=== PATIENT | male | born 1995 | race Caucasian/White ===

== ENCOUNTER → 2016-06-21 | Emergency (ER) | payer BC, OTHER ==
[~2016-06-21] VITALS: Ht 177.8 cm; Wt 83.9 kg
[~2016-06-21] MED LIST: ACET-71 PO; CLIN1CAP5 PO; ZITH250T PO
[2016-06-21 22:13] VITALS: BP 148/72
== END | disposition home or self-care (01) ==
LOC: M ED 22:09
DX: Z04.1 Encounter for examination and observation following transport accident (principal); Z53.21 Procedure and treatment not carried out due to patient leaving prior to being seen by health care provider

== ENCOUNTER 2017-04-23 12:49 | Emergency (ER) | payer BC, OTHER ==
[2017-04-23] MEDS: PERCOCET 5MG/325MG TAB PO ×2 (13:20)
[2017-04-23] MEDS: ADACEL/BOOSTRIX VACCINE (DIPHTH/PERTUSS/ACELL/TETANUS)0.5ML SYR (90715) IM ×2 (13:58)
== END 2017-04-23 14:50 | disposition home or self-care (01) ==
LOC: M ED 12:49
DX: T33.531A Superficial frostbite of right finger(s), initial encounter (principal); X31.XXXA Exposure to excessive natural cold, initial encounter; Y92.89 Other specified places as the place of occurrence of the external cause; Y93.89 Activity, other specified; Y99.8 Other external cause status
CPT/HCPCS: 90715

== ENCOUNTER 2017-04-24 13:37 | Emergency (ER) | payer BC, OTHER | END 2017-04-24 14:37 | disposition home or self-care (01) | LOC: M ED 13:37 | DX: Z04.8 Encounter for examination and observation for other specified reasons (principal); T33.531D Superficial frostbite of right finger(s), subsequent encounter; X31.XXXD Exposure to excessive natural cold, subsequent encounter; Y92.89 Other specified places as the place of occurrence of the external cause; Y93.89 Activity, other specified; Y99.8 Other external cause status | CPT/HCPCS: 99282 ==

== ENCOUNTER → 2017-04-28 | Outpatient (REF) | payer OTHER ==
[2017-04-28 16:08] LABS: BASO % 0.5 % (0.0-1.0); EOS # 0.1 10^3/uL (0.0-0.50); EOS % 1.4 % (0.0-3.0); HEMATOCRIT 43.9 % (42.0-52.0); HEMOGLOBIN 15.6 g/dl (14.0-18.0); IMMATURE GRANULOCYTE # 0.1 10^3/uL (0-0); IMMATURE GRANULOCYTE % 1.1 % (0-0); LYMPH # 1.7 10^3/uL (1.5-6.5); LYMPH % 25.8 % (24.0-44.0); MEAN CORPUSCULAR HEMOGLOBIN 31.8 pg (27.0-33.0); MEAN CORPUSCULAR HGB CONC 35.5 g/dl (32.0-36.5); MEAN CORPUSCULAR VOLUME 89.4 fl (80.0-96.0); MONO # 0.5 10^3/uL (0.0-0.8); MONO % 7.5 % (0.0-5.0); NEUTROPHILS # 4.1 10^3/uL (1.8-7.7); NEUTROPHILS % 63.7 % (36.0-66.0); PLATELET COUNT, AUTOMATED 212 10^3/uL (150-450); RED BLOOD COUNT 4.91 10^6/uL (4.30-6.10); RED CELL DISTRIBUTION WIDTH 11.8 % (11.5-14.5); WHITE BLOOD COUNT 6.4 10^3/uL (4.0-10.0)
[2017-04-28 18:37] LABS: ALBUMIN 3.9 GM/DL (3.2-5.2); ALBUMIN/GLOBULIN RATIO 1.22 (1.00-1.93); ALKALINE PHOSPHATASE 73 U/L (45-117); ALT/SGPT 33 U/L (12-78); ANION GAP 8 MEQ/L (8-16); AST/SGOT 23 U/L (7-37); BILIRUBIN,TOTAL 0.3 MG/DL (0.2-1.0); BLOOD UREA NITROGEN 15 MG/DL (7-18); CALCIUM LEVEL 8.6 MG/DL (8.5-10.1); CARBON DIOXIDE LEVEL 30 MEQ/L (21-32); CHLORIDE LEVEL 103 MEQ/L (98-107); CHOLESTEROL LEVEL 194 MG/DL (<200); CREATININE FOR GFR 0.97 MG/DL (0.70-1.30); GLOMERULAR FILTRATION RATE > 60.0 (>60); GLUCOSE, FASTING 68 MG/DL (70-105); HDL CHOLESTEROL 52 MG/DL (>40); LDL CHOLESTEROL 119.8 MG/DL (<100); NON-HDL-C 142 MG/DL; POTASSIUM SERUM 4.1 MEQ/L (3.5-5.1); SODIUM LEVEL 141 MEQ/L (136-145); TOTAL PROTEIN 7.1 GM/DL (6.4-8.2); TRIGLYCERIDES LEVEL 111 MG/DL (<150)
== END ==
LOC: M SFHCPLAZ 14:46
DX: R00.2 Palpitations (principal); Z00.00 Encounter for general adult medical examination without abnormal findings; Z13.220 Encounter for screening for lipoid disorders; R07.9 Chest pain, unspecified; T33.521A Superficial frostbite of right hand, initial encounter

== ENCOUNTER → 2017-06-06 | Outpatient (CLI) | payer BC, OTHER ==
[~2017-06-06] MED LIST changes: -ACET-71 PO; -CLIN1CAP5 PO; +GASTROGRAFIN SOLUTION 30ML (Q9963) As Ordered; +ISOVUE-370 76% 100ML VIAL (Q9967) As Ordered; -ZITH250T PO
== END ==
LOC: M RAD 09:21
DX: R10.84 Generalized abdominal pain (principal); R11.10 Vomiting, unspecified; R63.5 Abnormal weight gain

== ENCOUNTER → 2017-06-06 | Outpatient (CLI) | payer OTHER ==
[2017-06-06 08:47] LABS: BASO % 0.2 % (0.0-1.0); EOS # 0.1 10^3/uL (0.0-0.50); HEMATOCRIT 40.4 % (42.0-52.0); HEMOGLOBIN 14.4 g/dl (14.0-18.0); IMMATURE GRANULOCYTE % 0.4 % (0-3.0); LYMPH # 1.4 10^3/uL (1.5-6.5); LYMPH % 31.1 % (24.0-44.0); MEAN CORPUSCULAR HEMOGLOBIN 32.5 pg (27.0-33.0); MEAN CORPUSCULAR HGB CONC 35.6 g/dl (32.0-36.5); MEAN CORPUSCULAR VOLUME 91.2 fl (80.0-96.0); MONO # 0.6 10^3/uL (0.0-0.8); MONO % 13.9 % (0.0-5.0); NEUTROPHILS # 2.4 10^3/uL (1.8-7.7); NEUTROPHILS % 52.4 % (36.0-66.0); PLATELET COUNT, AUTOMATED 167 10^3/uL (150-450); RED BLOOD COUNT 4.43 10^6/uL (4.30-6.10); RED CELL DISTRIBUTION WIDTH 11.7 % (11.5-14.5); WHITE BLOOD COUNT 4.6 10^3/uL (4.0-10.0)
[2017-06-06 09:19] LABS: ALBUMIN 3.6 GM/DL (3.2-5.2); ALBUMIN/GLOBULIN RATIO 1.29 (1.00-1.93); ALKALINE PHOSPHATASE 79 U/L (45-117); ALT/SGPT 49 U/L (12-78); ANION GAP 5 MEQ/L (8-16); AST/SGOT 45 U/L (7-37); BILIRUBIN,TOTAL 0.3 MG/DL (0.2-1.0); BLOOD UREA NITROGEN 13 MG/DL (7-18); CALCIUM LEVEL 7.8 MG/DL (8.5-10.1); CARBON DIOXIDE LEVEL 32 MEQ/L (21-32); CHLORIDE LEVEL 107 MEQ/L (98-107); CREATININE FOR GFR 1.06 MG/DL (0.70-1.30); GLOMERULAR FILTRATION RATE > 60.0 (>60); GLUCOSE, FASTING 79 MG/DL (70-100); LIPASE 110 U/L (73-393); POTASSIUM SERUM 3.9 MEQ/L (3.5-5.1); SODIUM LEVEL 144 MEQ/L (136-145); TOTAL PROTEIN 6.4 GM/DL (6.4-8.2)
== END ==
LOC: M WUC 08:15
DX: R10.84 Generalized abdominal pain (principal)

== ENCOUNTER 2017-08-05 10:26 | Day surgery (SDC) | payer BC, OTHER ==
[2017-08-05] MEDS: NS 1,000 ML IV (11:03)
[2017-08-05] MEDS ORDERED: fentaNYL 100 MCG/2 ML INJECTION (J3010) As Ordered (12:05)
[2017-08-05] MEDS ORDERED: LIDOCAINE 2% INJ 100 MG/5 ML SDV (FOR ANES.) As Ordered (12:07)
[2017-08-05] MEDS ORDERED: PROPOFOL 200 MG/20 ML VIAL As Ordered ×3 (12:19→12:33)
== END 2017-08-05 13:10 | disposition home or self-care (01) ==
LOC: M OPP 10:26
DX: K52.9 Noninfective gastroenteritis and colitis, unspecified (principal); K63.5 Polyp of colon; K64.8 Other hemorrhoids; R93.3 Abnormal findings on diagnostic imaging of other parts of digestive tract; K29.70 Gastritis, unspecified, without bleeding; K31.89 Other diseases of stomach and duodenum; R11.2 Nausea with vomiting, unspecified; R63.4 Abnormal weight loss; R51 Headache; F17.210 Nicotine dependence, cigarettes, uncomplicated; Z72.821 Inadequate sleep hygiene; Z80.3 Family history of malignant neoplasm of breast; Z80.0 Family history of malignant neoplasm of digestive organs
CPT/HCPCS: 45380

== ENCOUNTER 2018-04-04 21:23 | Emergency (ER) | payer BC, OTHER ==
[2018-04-04] MEDS: GI COCKTAIL 50ML BTL(HYOSCYAMINE/MAALOX/LIDOCAINE VISCOUS)(1:3:1) PO (22:15)
[2018-04-04 22:22] LABS: BASO % 0.2 % (0.0-1.0); EOS % 0.2 % (0.0-3.0); HEMATOCRIT 42.3 % (42.0-52.0); HEMOGLOBIN 14.9 g/dl (13.5-17.5); IMMATURE GRANULOCYTE % 0.2 % (0-3.0); LYMPH # 2.1 10^3/uL (1.5-6.5); MEAN CORPUSCULAR HEMOGLOBIN 31.1 pg (27.0-33.0); MEAN CORPUSCULAR HGB CONC 35.2 g/dl (32.0-36.5); MEAN CORPUSCULAR VOLUME 88.3 fl (80.0-96.0); MONO # 0.5 10^3/uL (0.0-0.8); MONO % 5.1 % (0.0-5.0); NEUTROPHILS # 7.2 10^3/uL (1.8-7.7); NEUTROPHILS % 73.3 % (36.0-66.0); PLATELET COUNT, AUTOMATED 204 10^3/uL (150-450); RED BLOOD COUNT 4.79 10^6/uL (4.30-6.10); RED CELL DISTRIBUTION WIDTH 11.5 % (11.5-14.5); WHITE BLOOD COUNT 9.8 10^3/uL (4.0-10.0)
[2018-04-04 22:44] LABS: D-DIMER QUANT < 270 ng/ml (<500)
[2018-04-04 23:18] LABS: ANION GAP 8 MEQ/L (8-16); BLOOD UREA NITROGEN 15 MG/DL (7-18); CALCIUM LEVEL 8.5 MG/DL (8.5-10.1); CARBON DIOXIDE LEVEL 28 MEQ/L (21-32); CHLORIDE LEVEL 105 MEQ/L (98-107); CPK CREATINE PHOSPHOKINASE 282 U/L (39-308); CREATININE FOR GFR 0.92 MG/DL (0.70-1.30); GLOMERULAR FILTRATION RATE > 60.0 (>60); GLUCOSE, FASTING 84 MG/DL (70-100); MB/CK RELATIVE INDEX 1.74 (< OR =4); POTASSIUM SERUM 3.8 MEQ/L (3.5-5.1); SODIUM LEVEL 141 MEQ/L (136-145); TROPONIN I < 0.02 NG/ML (< 0.10)
[2018-04-05] MEDS: KETOROLAC 30 MG/ML VIAL (J1885) IV
== END 2018-04-05 01:30 | disposition home or self-care (01) ==
LOC: M ED 04-05 01:30
DX: R07.89 Other chest pain (principal); I45.19 Other right bundle-branch block; K29.70 Gastritis, unspecified, without bleeding; Z77.098 Contact with and (suspected) exposure to other hazardous, chiefly nonmedicinal, chemicals; Z82.49 Family history of ischemic heart disease and other diseases of the circulatory system
CPT/HCPCS: J1885

== ENCOUNTER 2021-07-06 15:26 | Emergency (ER) | payer BC, OTHER, SELFPAY ==
[~2021-07-06] VITALS: Ht 177.8 cm; Wt 99.0 kg
[~2021-07-06 15:26] MED LIST changes: +ACET1TAB16 PO; +CLIN150C17 PO; -GASTROGRAFIN SOLUTION 30ML (Q9963) As Ordered; +IBUP200T46 PO; -ISOVUE-370 76% 100ML VIAL (Q9967) As Ordered; +NAPR-837 PO; +PERC5TAB12 PO; +ZITH250T PO
[2021-07-06] MEDS ORDERED: KETOROLAC TROMETHAMINE 10 MG TAB PO ONE (16:40)
[2021-07-06] MEDS ORDERED: KETO10TAB PO (16:40)
[2021-07-06 16:57] VITALS: BP 138/67
== END 2021-07-06 16:58 | disposition home or self-care (01) ==
LOC: M ED 15:26
DX: S43.401A Unspecified sprain of right shoulder joint, initial encounter (principal); X50.9XXA Other and unspecified overexertion or strenuous movements or postures, initial encounter; Y92.9 Unspecified place or not applicable; Y93.9 Activity, unspecified; Y99.9 Unspecified external cause status

== ENCOUNTER → 2021-09-16 | Outpatient (CLI) | payer OTHER ==
[~2021-09-16] MED LIST changes: -ACET1TAB16 PO; +ACET300T48 PO; +KETO10TAB PO
== END ==
LOC: M PLAIMG 06:45
PROVIDERS: ATTEND Orthopaedic Surgery
DX: M25.511 Pain in right shoulder (principal); S43.31 Subluxation and dislocation of scapula

== ENCOUNTER 2022-07-09 12:43 | Observation (INO) | payer OTHER ==
[~2022-07-09] VITALS: Ht 177.8 cm; Wt 102.9 kg
[2022-07-09] MEDS ORDERED: NS 1,000 ML IV ONE (13:30)
[2022-07-09] MEDS: MORPHINE 4 MG/ML 1ML VIAL IV PRN ×2 (13:52→14:50)
[2022-07-09] MEDS ORDERED: ISOVUE-370 76% 100ML VIAL As Ordered ONE (13:55)
[2022-07-09 14:17] LABS: BASO % 0.3 % (0.0-1.0); EOS # 0.1 10^3/uL (0.0-0.5); EOS % 0.7 % (0.0-3.0); HEMATOCRIT 44.7 % (42.0-52.0); HEMOGLOBIN 15.6 g/dl (13.5-17.5); LYMPH # 1.6 10^3/uL (1.5-5.0); LYMPH % 22.5 % (24.0-44.0); MEAN CORPUSCULAR HEMOGLOBIN 30.8 pg (27.0-33.0); MEAN CORPUSCULAR HGB CONC 34.9 g/dl (32.0-36.5); MEAN CORPUSCULAR VOLUME 88.3 fl (80.0-96.0); MONO # 0.4 10^3/uL (0.0-0.8); MONO % 5.9 % (2.0-8.0); NEUTROPHILS % 70.2 % (36.0-66.0); PLATELET COUNT, AUTOMATED 199 10^3/uL (150-450); RED BLOOD COUNT 5.06 10^6/uL (4.30-6.10); WHITE BLOOD COUNT 7.2 10^3/uL (4.0-10.0)
[2022-07-09 14:31] LABS: ETHYL ALCOHOL (ETHANOL) < 0.003 % (0.000-0.010); LIPASE 23 U/L (12-53)
[2022-07-09 14:32] LABS: INR 0.9; PARTIAL THROMBOPLASTIN TIME 25.2 SECONDS (24.8-34.2); PROTHROMBIN TIME 12.3 SECONDS (12.5-14.5)
[2022-07-09 14:33] LABS: AMYLASE 43 U/L (30-118); CPK CREATINE PHOSPHOKINASE 303 U/L (46-171)
[2022-07-09 14:36] LABS: ALBUMIN 4.2 G/DL (3.2-5.2); ALKALINE PHOSPHATASE 101 U/L (46-116); ALT/SGPT 38 U/L (7.0-40); AST/SGOT 25 U/L (<34); BILIRUBIN,DIRECT 0.2 MG/DL (<0.4); BILIRUBIN,TOTAL 0.7 MG/DL (0.3-1.2); CK-MB VALUE MASS 2.1 NG/ML (<3.6); MB/CK RELATIVE INDEX 0.69 (< OR =4); TOTAL PROTEIN 7.1 G/DL (5.7-8.2)
[2022-07-09 14:55] LABS: RSV AMPLIFICATION NEGATIVE (NEGATIVE)
[2022-07-09] MEDS ORDERED: MORPHINE 4 MG/ML 1ML VIAL IV ONE (16:05)
[2022-07-09 16:27] LABS: APPEARANCE, URINE CLEAR (CLEAR); BACTERIA, URINE AUTO NEGATIVE (NEGATIVE); BILIRUBIN, URINE AUTO NEGATIVE (NEGATIVE); BLOOD, URINE BLOOD NEGATIVE (NEGATIVE); COLOR, URINE STRAW (YELLOW); GLUCOSE, URINE (UA) AUTO NEGATIVE (NEGATIVE); KETONE, URINE AUTO NEGATIVE (NEGATIVE); LEUKOCYTE ESTERASE, URINE AUTO NEGATIVE (NEGATIVE); MUCUS, URINE SMALL (NEGATIVE); NITRITE, URINE AUTO NEGATIVE (NEGATIVE); PROTEIN, URINE AUTO NEGATIVE (NEGATIVE); RBC, URINE AUTO 0 /HPF (0-3); SPECIFIC GRAVITY URINE AUTO 1.032 (1.002-1.035); SQUAMOUS EPITHELIAL CELL UR AU 0 /HPF (0-6); UROBILINOGEN, URINE AUTO 0.2 mg/dL (0.0-2.0); WBC, URINE AUTO 0 /HPF (0-3)
[2022-07-09] MEDS ORDERED: HOME MED LIST COMPLETE! XX SCH (16:45)
[2022-07-09 16:49] LABS: AMPHETAMINES LEVEL URINE NEGATIVE (NEGATIVE); BENZODIAZEPINES URINE NEGATIVE (NEGATIVE)
[2022-07-09 16:50] LABS: BARBITURATES URINE NEGATIVE (NEGATIVE); CANNABINOIDS URINE NEGATIVE (NEGATIVE); COCAINE METABOLITE URINE NEGATIVE (NEGATIVE); METHADONE URINE NEGATIVE (NEGATIVE); PHENCYCLIDINE URINE NEGATIVE (NEGATIVE)
[2022-07-09 16:53] LABS: OPIATES URINE POSITIVE (NEGATIVE)
[2022-07-09] MEDS ORDERED: ONDANSETRON 4MG TAB PO PRN (16:55)
[2022-07-09] MEDS: NS 1,000 ML IV SCH ×2 (16:55→20:33)
[2022-07-09] MEDS ORDERED: MORPHINE 2 MG/ML 1ML VIAL IV PRN (16:55)
[2022-07-09] MEDS ORDERED: MORPHINE 4 MG/ML 1ML VIAL IV PRN (16:55)
[2022-07-09] MEDS: PANTOPRAZOLE 40MG VIAL IV SCH (18:00)
[2022-07-09] MEDS: KETOROLAC 30 MG/ML 1ML VIAL IV SCH (18:00)
[2022-07-09 19:24] VITALS: BP 129/67
[2022-07-09] MEDS: MORPHINE 2 MG/ML 1ML VIAL IV PRN (20:34)
[2022-07-10] MEDS: KETOROLAC 30 MG/ML 1ML VIAL IV SCH ×4 (00:12→17:46)
[2022-07-10] MEDS: MORPHINE 2 MG/ML 1ML VIAL IV PRN (02:04)
[2022-07-10] MEDS: MORPHINE 4 MG/ML 1ML VIAL IV PRN ×2 (06:23→22:23)
[2022-07-10 06:25] VITALS: BP 130/75
[2022-07-10] MEDS: ONDANSETRON 4MG 2ML VIAL IV PRN ×2 (08:06→17:38)
[2022-07-10] MEDS: PERCOCET 5MG/325MG TAB PO PRN ×2 (10:24→19:38)
[2022-07-10] MEDS: NS 1,000 ML IV SCH (12:45)
[2022-07-10 14:00] VITALS: BP 131/81
[2022-07-10 16:00] VITALS: BP 131/81
[2022-07-10] MEDS: PANTOPRAZOLE 40MG VIAL IV SCH (17:38)
[2022-07-10] MEDS ORDERED: SENOKOT S TAB PO PRN (20:20)
[2022-07-10] MEDS: DOCUSATE SODIUM 100MG CAPSULE PO SCH (20:48)
[2022-07-10 21:50] VITALS: BP 146/94
[2022-07-10 22:00] VITALS: BP 121/60
[2022-07-11] MEDS: KETOROLAC 30 MG/ML 1ML VIAL IV SCH ×5 (00:26→23:44)
[2022-07-11] MEDS: PERCOCET 5MG/325MG TAB PO PRN ×3 (02:42→18:41)
[2022-07-11] MEDS: MORPHINE 4 MG/ML 1ML VIAL IV PRN ×2 (03:38→20:39)
[2022-07-11 05:12] VITALS: BP 121/65
[2022-07-11] MEDS: DOCUSATE SODIUM 100MG CAPSULE PO SCH ×2 (07:41→20:36)
[2022-07-11] MEDS: ONDANSETRON 4MG 2ML VIAL IV PRN ×2 (08:24→15:15)
[2022-07-11 10:00] VITALS: BP 130/78
[2022-07-11 14:00] VITALS: BP 130/81
[2022-07-11] MEDS: PANTOPRAZOLE 40MG VIAL IV SCH (17:34)
[2022-07-11 20:15] VITALS: BP 116/73
[2022-07-12] MEDS: PERCOCET 5MG/325MG TAB PO PRN ×3 (02:23→21:49)
[2022-07-12] MEDS: KETOROLAC 30 MG/ML 1ML VIAL IV SCH ×4 (05:27→23:43)
[2022-07-12] MEDS: ONDANSETRON 4MG 2ML VIAL IV PRN ×3 (05:28→21:46)
[2022-07-12 06:01] VITALS: BP 117/73
[2022-07-12] MEDS ORDERED: SENOKOT S TAB PO ONE (09:35)
[2022-07-12] MEDS: DOCUSATE SODIUM 100MG CAPSULE PO SCH ×2 (09:45→21:45)
[2022-07-12] MEDS: SENOKOT S TAB PO SCH (09:55)
[2022-07-12 14:00] VITALS: BP 117/73
[2022-07-12] MEDS: PANTOPRAZOLE 40MG VIAL IV SCH (18:13)
[2022-07-12] MEDS: MIRALAX *UNIT DOSE* 17GM PACKET PO PRN (21:46)
[2022-07-13] MEDS: MORPHINE 4 MG/ML 1ML VIAL IV PRN (01:17)
[2022-07-13] MEDS: ONDANSETRON 4MG 2ML VIAL IV PRN ×4 (04:31→20:38)
[2022-07-13] MEDS: PERCOCET 5MG/325MG TAB PO PRN ×4 (04:32→20:38)
[2022-07-13] MEDS: KETOROLAC 30 MG/ML 1ML VIAL IV SCH ×4 (06:15→23:12)
[2022-07-13] MEDS: SENOKOT S TAB PO SCH (09:09)
[2022-07-13] MEDS: DOCUSATE SODIUM 100MG CAPSULE PO SCH ×2 (09:09→20:28)
[2022-07-13 14:00] VITALS: BP 135/78
[2022-07-13] MEDS: PANTOPRAZOLE 40MG VIAL IV SCH (17:30)
[2022-07-13] MEDS ORDERED: BISACODYL 5MG TAB PO ONE (17:45)
[2022-07-13] MEDS: SENNA 8.6 MG TAB (SENOKOT) PO SCH (20:28)
[2022-07-13] MEDS: MIRALAX *UNIT DOSE* 17GM PACKET PO PRN (20:28)
[2022-07-13 20:31] VITALS: BP 134/79
[2022-07-14] MEDS: ONDANSETRON 4MG 2ML VIAL IV PRN (02:41)
[2022-07-14] MEDS: PERCOCET 5MG/325MG TAB PO PRN (02:42)
[2022-07-14 05:25] VITALS: BP 127/74
[2022-07-14] MEDS: KETOROLAC 30 MG/ML 1ML VIAL IV SCH ×2 (06:00→11:23)
[2022-07-14] MEDS ORDERED: IBUP-1022 PO (08:56)
[2022-07-14] MEDS ORDERED: ONDA4TAB6 PO (08:56)
[2022-07-14] MEDS ORDERED: PERCOCET PO (08:56)
[2022-07-14] MEDS: SENOKOT S TAB PO SCH ×2 (09:00→09:37)
[2022-07-14] MEDS: SENNA 8.6 MG TAB (SENOKOT) PO SCH ×2 (09:00→09:37)
[2022-07-14] MEDS: DOCUSATE SODIUM 100MG CAPSULE PO SCH ×2 (09:00→09:37)
== END 2022-07-14 12:40 | disposition home or self-care (01) ==
LOC: M ED 12:43 → M ED INP 12:44 → M MS5PR 19:15
PROVIDERS: ADMIT Surgery; ATTEND Surgery
DX: J93.83 Other pneumothorax (principal); S43.122A Dislocation of left acromioclavicular joint, 100%-200% displacement, initial encounter; S40.012A Contusion of left shoulder, initial encounter; V29.09 Motorcycle driver injured in collision with other motor vehicles in nontraffic accident; Y92.410 Unspecified street and highway as the place of occurrence of the external cause; Y93.9 Activity, unspecified; Y99.9 Unspecified external cause status; M25.512 Pain in left shoulder
CPT/HCPCS: 70450; 71045; 71046; 71260; 72125; 72128; 72170; 73030; 73221; 73552; 73564; 74177; 80047; 80076; 80307; 81001; 82077; 82150; 82550; 82553; 83605; 83690; 84484; 85025; 85610; 85730; 86850; 86900; 86901; 87631; 93041; 94760; 96361; 96374; 96375; 96376; 97110; 97161; 97530; 99285; C9113; J1885; J2405; Q9967

== ENCOUNTER → 2022-07-27 | Outpatient (CLI) | payer OTHER ==
[~2022-07-27] MED LIST changes: +IBUP-1022 PO; +ONDA4TAB6 PO; +PERCOCET PO
== END ==
LOC: M SOG 09:11
PROVIDERS: ATTEND Orthopaedic Surgery
DX: Z47.89 Encounter for other orthopedic aftercare (principal); R93.6 Abnormal findings on diagnostic imaging of limbs

== ENCOUNTER → 2022-09-07 | Outpatient (CLI) | payer OTHER | LOC: M SOG 08:54 | PROVIDERS: ATTEND Orthopaedic Surgery | DX: S43.102D Unspecified dislocation of left acromioclavicular joint, subsequent encounter (principal) ==

== ENCOUNTER → 2022-09-08 | Outpatient (REF) | payer OTHER ==
[2022-09-08 17:51] LABS: BASO % 0.8 % (0.0-1.0); EOS # 0.1 10^3/uL (0.0-0.5); EOS % 1.2 % (0.0-3.0); HEMOGLOBIN 15.5 g/dl (13.5-17.5); LYMPH # 1.7 10^3/uL (1.5-5.0); LYMPH % 35.2 % (24.0-44.0); MEAN CORPUSCULAR HEMOGLOBIN 31.4 pg (27.0-33.0); MONO # 0.4 10^3/uL (0.0-0.8); MONO % 8.9 % (2.0-8.0); NEUTROPHILS # 2.6 10^3/uL (1.5-8.5); NEUTROPHILS % 53.1 % (36.0-66.0); PLATELET COUNT, AUTOMATED 227 10^3/uL (150-450); RED BLOOD COUNT 4.94 10^6/uL (4.30-6.10); WHITE BLOOD COUNT 4.9 10^3/uL (4.0-10.0)
[2022-09-08 18:25] LABS: ALBUMIN 4.2 G/DL (3.2-5.2); ALKALINE PHOSPHATASE 90 U/L (46-116); ALT/SGPT 43 U/L (7.0-40); AST/SGOT 28 U/L (<34); BILIRUBIN,TOTAL 0.7 MG/DL (0.3-1.2); BLOOD UREA NITROGEN 22 MG/DL (9-23); CARBON DIOXIDE LEVEL 28 MMOL/L (20-31); CHLORIDE LEVEL 104 MMOL/L (98-107); CHOLESTEROL LEVEL 257 MG/DL (<200); CHOLESTEROL RISK RATIO 6.57 (<5); CREATININE FOR GFR 0.97 MG/DL (0.70-1.30); GLOMERULAR FILTRATION RATE > 60.0 (>60); GLUCOSE, FASTING 78 MG/DL (60-100); HDL CHOLESTEROL 39.1 MG/DL (>40); LDL CHOLESTEROL 183.3 MG/DL (<100); NON-HDL-C 217.9 MG/DL; SODIUM LEVEL 133 MMOL/L (136-145); TOTAL PROTEIN 7.1 G/DL (5.7-8.2); TRIGLYCERIDES LEVEL 173 MG/DL (<150)
[2022-09-08 18:28] LABS: THYROID STIMULATING HORMONE 2.322 uIU/ML (0.55-4.78)
[2022-09-08 18:58] LABS: HIV 1&2 SCREEN NEGATIVE (NEGATIVE)
== END ==
LOC: M LAB REF 16:33
PROVIDERS: ATTEND Physician Assistant
DX: E66.9 Obesity, unspecified (principal); Z83.3 Family history of diabetes mellitus; R53.83 Other fatigue; Z11.4 Encounter for screening for human immunodeficiency virus [HIV]; Z11.59 Encounter for screening for other viral diseases

== ENCOUNTER → 2022-11-24 | Outpatient (REF) | payer OTHER | LOC: M LAB REF 16:13 | PROVIDERS: ATTEND Physician Assistant | DX: Z79.899 Other long term (current) drug therapy (principal) ==

== ENCOUNTER → 2024-08-17 | Outpatient (CLI) | payer OTHER ==
[~2024-08-17] MED LIST changes: +ONDA-282 PO; -ONDA4TAB6 PO
== END ==
LOC: M RAD 10:18 → M WHC 10:18
PROVIDERS: ATTEND Physician Assistant
DX: R10.11 Right upper quadrant pain (principal)